=== PATIENT | female | born 1980 | race Caucasian/White ===

== ENCOUNTER 2016-09-24 09:24 | Day surgery (SDC) | payer MEDICAID ==
[~2016-09-24 09:24] MED LIST: Dexamethasone 4 MG/ML 5 ML MDV ONE; HYDROmorphone 1 MG/ML Syringe ONE; Lidocaine 1%/Sod Bicarbonate in NS 8.4% 1 ML Syringe IV PRN; Midazolam 1 MG/ML 2 ML SDV ONE; Ondansetron 4 MG/2 ML SDV ONE; Propofol 200 MG/20 ML SDV ONE; Rocuronium 50 MG/5 ML Vial ONE; Sodium Chloride 0.9% 10 ML ONE; Sodium Chloride 0.9% 10 ML Syringe FLUSH PRN; ceFAZolin 1 GM Vial ONE; fentaNYL 250 MCG/5 ML SDV ONE
[2016-09-24] MEDS: Lactated Ringers 1,000 ML IV SCH ×2 (09:50→14:58)
[2016-09-24] MEDS ORDERED: Sodium Chloride 0.9% 50 ML SDV ONE (09:58)
[2016-09-24] MEDS ORDERED: Bupivacaine 0.5% 30 ML SDV ONE (09:58)
[2016-09-24] MEDS ORDERED: Lidocaine 1% with EPINEPHrine 1:100,000 20 ML MDV ONE (09:58)
--- NOTE | 2016-09-24 10:06 | PCM.PREANE ---
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 Respiratory: Reports: no symptoms Cardiovascular: Reports: no symptoms GI: Reports: no symptoms Other: Reports: none - PHYSICAL ASSESSMENT HR: 81 O2 Sat by Pulse Oximetry: 100 RR: 16 BP: 111/77 Temp: 37.2 C Height: 1.57 m Weight: 52.617 kg NPO Status Date: 09/23/16 NPO Status Time: 21:00 ASA Class: 2 Mental Status: alert & oriented x3 Dentition: Reports: normal dentition Thyro-Mental Finger Breadths: 3 Mouth Opening Finger Breadths: 3 ROM/Head Extension: full Respiratory Status: lungs clear to auscultation bilaterally Cardiovascular Status: regular rate & rhythm, normal S1, S2, no murmur, blood pressure WNL - ALLERGIES Allergies/Adverse Reactions: Allergies Allergy/AdvReac Type Severity Reaction Status Date / Time No Known Allergies Allergy Verified 09/23/16 13:46 - BLOOD Blood Available: No Product(s) Available: None - ANESTHESIA PLAN Preop Beta Noam: No Anesthesia Type Planned: general anesthesia (scopoamine patch ordered ) - ACKNOWLEDGEMENTS Pt an appropriate candidate for the planned anesthesia: Yes Alternatives and risks of anesthesia discussed w pt/guardian: Yes Pt/Guardian understands and agree with anesthesia plan: Yes PreAnesthesia Questionnaire HEENT History: Reports: None Cardiovascular History: Reports: None Respiratory History: Reports: None Gastrointestinal History: Reports: None Genitourinary History: Reports: None COURT BAILIFF OR SHERIFF History: Reports: , Other (see below) Other OB/BYN History: Bicornuate uterus, dysmenorrhea, infertility, pelvic pain , chlamydia Musculoskeletal History: Reports: None Neurological History: Reports: None Psychiatric History: Reports: Anxiety Endocrine/Metabolic History: Reports: None Hematologic History: Reports: None Immunologic History: Reports: None Oncologic (Cancer) History: Reports: None Dermatologic History: Reports: Other (see below) Other Dermatologic History: History of dermatitis and rash - Infectious Disease History Infectious Disease History: Reports: Other (see below) Other Infectious Disease History: Herpes Zoster, Chlamydia - Past Surgical History HEENT Surgical History: Reports: Tonsillectomy Cardiovascular Surgical History: Reports: None Respiratory Surgical History: Reports: None GI Surgical History: Reports: None Female Surgical History: Reports: section Endocrine Surgical History: Reports: None Neurological Surgical History: Reports: None Musculoskeletal Surgical History: Reports: None Dermatological Surgical History: Reports: None - SUBSTANCE USE Smoking Status *Q: Never Smoker Tobacco Use Within Last Twelve Months: No Second Hand Smoke Exposure: No Recreational Drug Use History: No - HOME MEDS Home Medications: Home Meds Escitalopram [Lexapro] 20 mg PO DAILY 09/23/16 [History] - CURRENT (IN HOUSE) MEDS Current Meds: Current Medications Lactated Ringer's (Ringers, Lactated) 1,000 mls @ 125 mls/hr IV ASDIRECTED FARRUKH Stop: 09/24/16 23:00 Lidocaine/Sodium Bicarbonate (Buffered Lidocaine 1% In Ns 8.4%) 0.25 ml IV ONETIME PRN PRN Reason: Prior to IV Start Stop: 09/24/16 18:00 Sodium Chloride (Saline Flush) 10 ml FLUSH ASDIRECTED PRN PRN Reason: Keep Vein Open Stop: 09/24/16 18:00 Discontinued Medications Cefazolin Sodium (Ancef) Confirm Administered Dose 2 gm .ROUTE .STK-MED ONE Stop: 09/24/16 09:00 Dexamethasone (Dexamethasone) Confirm Administered Dose 20 mg .ROUTE .STK-MED ONE Stop: 09/24/16 09:00 Fentanyl (Sublimaze) Confirm Administered Dose 250 mcg .ROUTE .STK-MED ONE Stop: 09/24/16 09:01 Hydromorphone HCl (Dilaudid) Confirm Administered Dose 1 mg .ROUTE .STK-MED ONE Stop: 09/24/16 09:00 Sodium Chloride (Normal Saline) Confirm Administered Dose 10 mls @ as directed .ROUTE .STK-MED ONE Stop: 09/24/16 09:00 Midazolam HCl (Versed 1 Mg/Ml) Confirm Administered Dose 2 mg .ROUTE .STK-MED ONE Stop: 09/24/16 09:01 Ondansetron HCl (Zofran) Confirm Administered Dose 4 mg .ROUTE .STK-MED ONE Stop: 09/24/16 09:00 Propofol (Diprivan 20 Ml) Confirm Administered Dose 200 mg .ROUTE .STK-MED ONE Stop: 09/24/16 09:00 Rocuronium [place] (Zemuron) Confirm Administered Dose 50 mg .ROUTE .STK-MED ONE Stop: 09/24/16 09:00
[2016-09-24] MEDS ORDERED: Scopolamine 1.5 MG Transdermal Patch TRDERM ONE (10:10)
[2016-09-24] MEDS ORDERED: Ketorolac 30 MG/ML SDV ONE (12:24)
--- NOTE | 2016-09-24 13:02 | PCM.POSTAN ---
POST ANESTHESIA ASSESSMENT - MENTAL STATUS Mental Status: alert, oriented - VITAL SIGNS Pulse Rate: 82 SaO2: 99 Resp Rate: 16 Blood Pressure: 92/52 Temperature: 36.2 C - RESPIRATORY Respiratory Status: respiratory rate WNL, airway patent, O2 saturation stable - CARDIOVASCULAR CV Status: pulse rate WNL, blood pressure stable - GASTROINTESTINAL GI Status: no symptoms - PAIN Pain Score: 0 - POST OP HYDRATION Hydration Status: adequate & stable
[2016-09-24] MEDS ORDERED: Metoclopramide 10 MG/2 ML SDV IVPUSH PRN (13:03)
[2016-09-24] MEDS ORDERED: Ondansetron 4 MG/2 ML SDV IVPUSH PRN ×2 (13:03→16:29)
[2016-09-24] MEDS ORDERED: fentaNYL 100 MCG/2 ML SDV IVPUSH PRN (13:03)
--- NOTE | 2016-09-24 13:23 | PCM.OPNOTE ---
- General Post-Op/Procedure Note Date of Surgery/Procedure: 09/24/16 Operative Procedure(s): Laparoscope assisted vaginal hysterectomy, bilateral salpingectomy (neither ovary removed.) Pre Op Diagnosis: Hypermenorrhea, bicornuate uterus (more arcuate.), Dysmenorrhea Post-Op Diagnosis: Same Anesthesia Technique: General ET tube Primary Surgeon: Chad Francois Secondary Surgeon: Joshua Hinojosa Anesthesia Provider: Jessica Muniz Publicity Agent: Gurdeep Davis (HVAC MAINTENANCE TECHNICIAN) Fluid Replacement, Intraop: 1,600 Output, Urine Amount: 130 EBL in mLs: 50 Drain/Tube Comments:: None Complications: None Condition: Good Free Text/Narrative:: Patient was transported to operating room #2, and placed under general anesthesia with endotracheal placed in the low dorsal lithotomy position. Prepared and draped in sterile fashion. Timeout performed confirming name, date of , and procedures. Plan laparoscope assisted vaginal hysterectomy, bilateral salpingectomy (neither ovary was removed.). SCDs in place. Sponge, and prior surgery. Ancef 2 g given cleaned prior surgery. Examination under anesthesia revealed anterior uterus. No fixation of the adnexa, adnexa, was freely mobile. Uterus was normal size. Uterine manipulator was placed. Gonzales catheter placed to gravity drainage-Gonzales catheter removed. After surgery was completed. The umbilical incision was made after injecting 20 L of Marcaine 0.5 % inside. The incision and incision made and the pneumoperitoneum needle introduced without difficulty. Pneumoperitoneum was obtained. A 5 mm trocar was introduced and prompt visualization of pelvic organs was accomplished 2 mL of 0.5% Marcaine injected in the midline area of previous incisions. A small 5 mm transverse incision was made and the 5 mm trocar was introduced and manipulation of the ovaries and tubes revealed that left assisted vaginal hysterectomy should be able to be performed. Additional ports placed on the left and right side, with transillumination of the abdomen to avoid inferior epigastric vessel damage. The patient and I have discussed trying to leave. Both ovaries, and both ovaries were left, the right fallopian tube was grasped, elevated, and, crossclamped with Enseal activated, and incised, and proceeding towards the uterus. The tube was removed away from the mesosalpinx. Crossclamping the triple pedicle, and proceeding caudad. Crossclamping, activating the Enseal, and, incising, until the area of the uterine vasculature was, approximate, crossclamped, activated, x2 in size, times one for good hemostasis. A portion of bladder flap was created and pushed caudad. The right ovary appeared normal. Good blood supply at the end of procedure. When reevaluated. After closure of the peritoneal cavity. Same for the left ovary. The left ovary was grasped, and, elevated, and crossclamping the mesosalpinx, removing fallopian tube away from the ovary. The patient had had previous left ectopic . Left fallopian tube was somewhat adherent to the left ovary , but was able to be freed up, and removed saving. The left ovary from removal of triple pedicle was crossclamped, activating the Enseal, incising, and proceeding caudad until the uterine vascular was cross clamped twice activated, and incised, x1. Bladder flap was then created on the left side, meeting in the midline hemostasis was normal. Both ovaries appeared good. The pneumoperitoneum was reduced and the vaginal versus procedure was performed, grasping, the cervix. Of the uterus, and traction applied. Injecting, liters of 0.25% lidocaine with epinephrine for hemostasis. Circumscribing the cervix. A posterior colpotomy was then performed without difficulty. Crossclamping, the uterosacral and cardinal ligament bundles with ligature, activating, incising, proceeding cephalad until the uterus was removed en bloc with the fallopian tubes. Sponge, needle, pack, and splint sharp count correct, x2 in the peritoneal cavity was closed with running suture, pursestring type of 0 Monocryl. The anterior, posterior vaginal cuff, closed with a running, locking suture of 0 Monocryl. Hemostasis was normal. The pneumoperitoneum was reobtained and looking at the pedicles and the closure. No bleeding. Sponge, pack, and splint sharp count had been correct, the pneumoperitoneum was reduced before incisions closed with 4-0 Monocryl interrupted sutures and Dermabond applied. Patient transported post anesthesia care unit in satisfactory condition. No blood transfusions were required. One set of pictures taken a total of 7 images image 001, shows the anterior cul- de-sac. With adhesions from previous x3. Image 002, shows the left ovary with corpus luteum cyst, otherwise, normal. Left fallopian tube image, 003 shows the right fallopian tube with several small hydatid cyst of morganii image 004 overview of the posterior cul-de-sac. Both ovaries, and tubes are visible, image, [id number], and 007 showed the closure at the vaginal cuff. After removal small clot in any 00, 7, there's no active bleeding
[2016-09-24] MEDS ORDERED: HYDROmorphone 0.5 MG/0.5 ML Syringe IVPUSH PRN (14:05)
--- NOTE | 2016-09-24 14:31 | PCM.SN ---
- Free Text/Narrative Note: patient c/o pain needs extended recovery for pain management.
[2016-09-24] MEDS ORDERED: Acetaminophen/oxyCODONE 325-5 MG Tab PO ONE (15:45)
[2016-09-24] MEDS ORDERED: Ondansetron 4 MG Tab.DIS PO PRN (16:25)
--- NOTE | 2016-09-24 17:32 | PCM.SN ---
- Free Text/Narrative Note: Patient c/o 5/10 pain, extended recovery, lives in [place], patient not able to go home tonight due to pain and concerns whe will have problems at homewill stay for pain management.
[2016-09-24] MEDS: HYDROmorphone 0.5 MG/0.5 ML Syringe IVPUSH PRN ×3 (18:47→22:53)
[2016-09-24] MEDS: Acetaminophen/oxyCODONE 325-5 MG Tab PO PRN (20:29)
[2016-09-25] MEDS: HYDROmorphone 0.5 MG/0.5 ML Syringe IVPUSH PRN ×6 (00:23→08:48)
[2016-09-25] MEDS: Acetaminophen/oxyCODONE 325-5 MG Tab PO PRN ×2 (02:35→08:48)
--- NOTE | 2016-09-25 07:37 | PCM.DCSUM1 ---
Discharge Summary - Hospital Course Free Text/Narrative:: [facility] Post-Op/Procedure Note Patient Name: AYO RODARTE Date of : 84 Patient Status: Surgical Day Care Attending Provider: Chad Francois Date: 09/24/16 13:15 Initialization Date: 09/24/16 13:15 - General Post-Op/Procedure Note Date of Surgery/Procedure: 09/24/16 Operative Procedure(s): Laparoscope assisted vaginal hysterectomy, bilateral salpingectomy (neither ovary removed.) Pre Op Diagnosis: Hypermenorrhea, bicornuate uterus (more arcuate.), Dysmenorrhea Post-Op Diagnosis: Same Anesthesia Technique: General ET tube Primary Surgeon: Chad Francois Secondary Surgeon: Joshua Hinojosa Anesthesia Provider: Jessica Muniz Sterilizer Operator: Gurdeep Davis (CHAIN LINK FENCE INSTALLER) Fluid Replacement, Intraop: 1,600 Output, Urine Amount: 130 EBL in mLs: 50 Drain/Tube Comments:: None Complications: None Condition: Good Free Text/Narrative:: Patient was transported to operating room #2, and placed under general anesthesia with endotracheal placed in the low dorsal lithotomy position. Prepared and draped in sterile fashion. Timeout performed confirming name, date of , and procedures. Plan laparoscope assisted vaginal hysterectomy, bilateral salpingectomy (neither ovary was removed.). SCDs in place. Sponge, and prior surgery. Ancef 2 g given cleaned prior surgery. Examination under anesthesia revealed anterior uterus. No fixation of the adnexa, adnexa, was freely mobile. Uterus was normal size. Uterine manipulator was placed. Gonzales catheter placed to gravity drainage-Gonzales catheter removed. After surgery was completed. The umbilical incision was made after injecting 20 L of Marcaine 0.5 % inside. The incision and incision made and the pneumoperitoneum needle introduced without difficulty. Pneumoperitoneum was obtained. A 5 mm trocar was introduced and prompt visualization of pelvic organs was accomplished 2 mL of 0.5% Marcaine injected in the midline area of previous incisions. A small 5 mm transverse incision was made and the 5 mm trocar was introduced and manipulation of the ovaries and tubes revealed that left assisted vaginal hysterectomy should be able to be performed. Additional ports placed on the left and right side, with transillumination of the abdomen to avoid inferior epigastric vessel damage. The patient and I have discussed trying to leave. Both ovaries, and both ovaries were left, the right fallopian tube was grasped, elevated, and, crossclamped with Enseal activated, and incised, and proceeding towards the uterus. The tube was removed away from the mesosalpinx. Crossclamping the triple pedicle, and proceeding caudad. Crossclamping, activating the Enseal, and, incising, until the area of the uterine vasculature was, approximate, crossclamped, activated, x2 in size, times one for good hemostasis. A portion of bladder flap was created and pushed caudad. The right ovary appeared normal. Good blood supply at the end of procedure. When reevaluated. After closure of the peritoneal cavity. Same for the left ovary. The left ovary was grasped, and, elevated, and crossclamping the mesosalpinx, removing fallopian tube away from the ovary. The patient had had previous left ectopic . Left fallopian tube was somewhat adherent to the left ovary , but was able to be freed up, and removed saving. The left ovary from removal of triple pedicle was crossclamped, activating the Enseal, incising, and proceeding caudad until the uterine vascular was cross clamped twice activated, and incised, x1. Bladder flap was then created on the left side, meeting in the midline hemostasis was normal. Both ovaries appeared good. The pneumoperitoneum was reduced and the vaginal versus procedure was performed, grasping, the cervix. Of the uterus, and traction applied. Injecting, liters of 0.25% lidocaine with epinephrine for hemostasis. Circumscribing the cervix. A posterior colpotomy was then performed without difficulty. Crossclamping, the uterosacral and cardinal ligament bundles with ligature, activating, incising, proceeding cephalad until the uterus was removed en bloc with the fallopian tubes. Sponge, needle, pack, and splint sharp count correct, x2 in the peritoneal cavity was closed with running suture, pursestring type of 0 Monocryl. The anterior, posterior vaginal cuff, closed with a running, locking suture of 0 Monocryl. Hemostasis was normal. The pneumoperitoneum was reobtained and looking at the pedicles and the closure. No bleeding. Sponge, pack, and splint sharp count had been correct, the pneumoperitoneum was reduced before incisions closed with 4-0 Monocryl interrupted sutures and Dermabond applied. Patient transported post anesthesia care unit in satisfactory condition. No blood transfusions were required. One set of pictures taken a total of 7 images image 001, shows the anterior cul- de-sac. With adhesions from previous x3. Image 002, shows the left ovary with corpus luteum cyst, otherwise, normal. Left fallopian tube image, 003 shows the right fallopian tube with several small hydatid cyst of morganii image 004 overview of the posterior cul-de-sac. Both ovaries, and tubes are visible, image, [id number], and 007 showed the closure at the vaginal cuff. After removal small clot in any 00, 7, there's no active bleeding Required frequent IV pain meds throughout the night. Dismiss now, has followup appointment HPI Initial Comments: [facility] Post-Op/Procedure Note Patient Name: AYO RODARTE Date of : 84 Patient Status: Surgical Day Care Attending Provider: Chad Francois Date: 09/24/16 13:15 Initialization Date: 09/24/16 13:15 - General Post-Op/Procedure Note Date of Surgery/Procedure: 09/24/16 Operative Procedure(s): Laparoscope assisted vaginal hysterectomy, bilateral salpingectomy (neither ovary removed.) Pre Op Diagnosis: Hypermenorrhea, bicornuate uterus (more arcuate.), Dysmenorrhea Post-Op Diagnosis: Same Anesthesia Technique: General ET tube Primary Surgeon: Chad Francois Secondary Surgeon: Joshua Hinojosa Anesthesia Provider: Jessica Muniz Sterilizer Operator: Gurdeep Davis (CHAIN LINK FENCE INSTALLER) Fluid Replacement, Intraop: 1,600 Output, Urine Amount: 130 EBL in mLs: 50 Drain/Tube Comments:: None Complications: None Condition: Good Free Text/Narrative:: Patient was transported to operating room #2, and placed under general anesthesia with endotracheal placed in the low dorsal lithotomy position. Prepared and draped in sterile fashion. Timeout performed confirming name, date of , and procedures. Plan laparoscope assisted vaginal hysterectomy, bilateral salpingectomy (neither ovary was removed.). SCDs in place. Sponge, and prior surgery. Ancef 2 g given cleaned prior surgery. Examination under anesthesia revealed anterior uterus. No fixation of the adnexa, adnexa, was freely mobile. Uterus was normal size. Uterine manipulator was placed. Gonzales catheter placed to gravity drainage-Gonzales catheter removed. After surgery was completed. The umbilical incision was made after injecting 20 L of Marcaine 0.5 % inside. The incision and incision made and the pneumoperitoneum needle introduced without difficulty. Pneumoperitoneum was obtained. A 5 mm trocar was introduced and prompt visualization of pelvic organs was accomplished 2 mL of 0.5% Marcaine injected in the midline area of previous incisions. A small 5 mm transverse incision was made and the 5 mm trocar was introduced and manipulation of the ovaries and tubes revealed that left assisted vaginal hysterectomy should be able to be performed. Additional ports placed on the left and right side, with transillumination of the abdomen to avoid inferior epigastric vessel damage. The patient and I have discussed trying to leave. Both ovaries, and both ovaries were left, the right fallopian tube was grasped, elevated, and, crossclamped with Enseal activated, and incised, and proceeding towards the uterus. The tube was removed away from the mesosalpinx. Crossclamping the triple pedicle, and proceeding caudad. Crossclamping, activating the Enseal, and, incising, until the area of the uterine vasculature was, approximate, crossclamped, activated, x2 in size, times one for good hemostasis. A portion of bladder flap was created and pushed caudad. The right ovary appeared normal. Good blood supply at the end of procedure. When reevaluated. After closure of the peritoneal cavity. Same for the left ovary. The left ovary was grasped, and, elevated, and crossclamping the mesosalpinx, removing fallopian tube away from the ovary. The patient had had previous left ectopic . Left fallopian tube was somewhat adherent to the left ovary , but was able to be freed up, and removed saving. The left ovary from removal of triple pedicle was crossclamped, activating the Enseal, incising, and proceeding caudad until the uterine vascular was cross clamped twice activated, and incised, x1. Bladder flap was then created on the left side, meeting in the midline hemostasis was normal. Both ovaries appeared good. The pneumoperitoneum was reduced and the vaginal versus procedure was performed, grasping, the cervix. Of the uterus, and traction applied. Injecting, liters of 0.25% lidocaine with epinephrine for hemostasis. Circumscribing the cervix. A posterior colpotomy was then performed without difficulty. Crossclamping, the uterosacral and cardinal ligament bundles with ligature, activating, incising, proceeding cephalad until the uterus was removed en bloc with the fallopian tubes. Sponge, needle, pack, and splint sharp count correct, x2 in the peritoneal cavity was closed with running suture, pursestring type of 0 Monocryl. The anterior, posterior vaginal cuff, closed with a running, locking suture of 0 Monocryl. Hemostasis was normal. The pneumoperitoneum was reobtained and looking at the pedicles and the closure. No bleeding. Sponge, pack, and splint sharp count had been correct, the pneumoperitoneum was reduced before incisions closed with 4-0 Monocryl interrupted sutures and Dermabond applied. Patient transported post anesthesia care unit in satisfactory condition. No blood transfusions were required. One set of pictures taken a total of 7 images image 001, shows the anterior cul- de-sac. With adhesions from previous x3. Image 002, shows the left ovary with corpus luteum cyst, otherwise, normal. Left fallopian tube image, 003 shows the right fallopian tube with several small hydatid cyst of morganii image 004 overview of the posterior cul-de-sac. Both ovaries, and tubes are visible, image, [id number], and 007 showed the closure at the vaginal cuff. After removal small clot in any 00, 7, there's no active bleeding Required frequent IV pain meds throughout the night. Dismiss now, has followup appointment Brief History: [facility] . Post-Op/Procedure Note. [facility]: [id number]. Date of : 84Patient Status: Surgical Day Care. Attending Provider: Chad Francoisount Number: [id number]. Date: 09/24/16 13:15Initialization Date: 13:15. - General Post-Op/Procedure Note. Date of Surgery/Procedure: . Operative Procedure(s): Laparoscope assisted vaginal hysterectomy, bilateral salpingectomy (neither ovary removed.). Pre Op Diagnosis: Hypermenorrhea, bicornuate uterus (more arcuate.), Dysmenorrhea. Post-Op Diagnosis: Same. Anesthesia Technique: General ET tube. Primary Surgeon: Chad Francois. Secondary Surgeon: Joshua Hinojosa. Anesthesia Provider: Jessica Muniz. Sterilizer Operator: Gurdeep Davis (CHAIN LINK FENCE INSTALLER). Fluid Replacement, Intraop: 1,600. Output, Urine Amount: 130. EBL in mLs: 50. Drain/Tube Comments:: None. Complications: None. Condition: Good. Free Text/Narrative:: Patient was transported to operating room #2, and placed under general anesthesia with endotracheal placed in the low dorsal lithotomy position. Prepared and draped in sterile fashion. Timeout performed confirming name, date of , and procedures. Plan laparoscope assisted vaginal hysterectomy, bilateral salpingectomy (neither ovary was removed.). SCDs in place. Sponge, and prior surgery. Ancef 2 g given cleaned prior surgery. Examination under anesthesia revealed anterior uterus. No fixation of the adnexa, adnexa, was freely mobile. Uterus was normal size. Uterine manipulator was placed. Gonzales catheter placed to gravity drainage-Gonzales catheter removed. After surgery was completed. The umbilical incision was made after injecting 20 L of Marcaine 0.5 % inside. The incision and incision made and the pneumoperitoneum needle introduced without difficulty. Pneumoperitoneum was obtained. A 5 mm trocar was introduced and prompt visualization of pelvic organs was accomplished 2 mL of 0.5% Marcaine injected in the midline area of previous incisions. A small 5 mm transverse incision was made and the 5 mm trocar was introduced and manipulation of the ovaries and tubes revealed that left assisted vaginal hysterectomy should be able to be performed. Additional ports placed on the left and right side, with transillumination of the abdomen to avoid inferior epigastric vessel damage. The patient and I have discussed trying to leave. Both ovaries, and both ovaries were left, the right fallopian tube was grasped, elevated, and, crossclamped with Enseal activated, and incised, and proceeding towards the uterus. The tube was removed away from the mesosalpinx. Crossclamping the triple pedicle, and proceeding caudad. Crossclamping, activating the Enseal, and, incising, until the area of the uterine vasculature was, approximate, crossclamped, activated, x2 in size, times one for good hemostasis. A portion of bladder flap was created and pushed caudad. The right ovary appeared normal. Good blood supply at the end of procedure. When reevaluated. After closure of the peritoneal cavity. Same for the left ovary. The left ovary was grasped, and, elevated, and crossclamping the mesosalpinx, removing fallopian tube away from the ovary. The patient had had previous left ectopic . Left fallopian tube was somewhat adherent to the left ovary , but was able to be freed up, and removed saving. The left ovary from removal of triple pedicle was crossclamped, activating the Enseal, incising, and proceeding caudad until the uterine vascular was cross clamped twice activated, and incised, x1. Bladder flap was then created on the left side, meeting in the midline hemostasis was normal. Both ovaries appeared good. The pneumoperitoneum was reduced and the vaginal versus procedure was performed, grasping, the cervix. Of the uterus, and traction applied. Injecting, liters of 0.25% lidocaine with epinephrine for hemostasis. Circumscribing the cervix. A posterior colpotomy was then performed without difficulty. Crossclamping, the uterosacral and cardinal ligament bundles with ligature, activating, incising, proceeding cephalad until the uterus was removed en bloc with the fallopian tubes. Sponge, needle, pack, and splint sharp count correct, x2 in the peritoneal cavity was closed with running suture, pursestring type of 0 Monocryl. The anterior, posterior vaginal cuff, closed with a running, locking suture of 0 Monocryl. Hemostasis was normal. The pneumoperitoneum was reobtained and looking at the pedicles and the closure. No bleeding. Sponge, pack, and splint sharp count had been correct, the pneumoperitoneum was reduced before incisions closed with 4-0 Monocryl interrupted sutures and Dermabond applied. Patient transported post anesthesia care unit in satisfactory condition. No blood transfusions were required. One set of pictures taken a total of 7 images image 001, shows the anterior cul-de-sac. With adhesions from previous x3. Image 002, shows the left ovary with corpus luteum cyst, otherwise, normal. Left fallopian tube image, 003 shows the right fallopian tube with several small hydatid cyst of morganii image 004 overview of the posterior cul-de-sac. Both ovaries, and tubes are visible, image, [id number] , and 007 showed the closure at the vaginal cuff. After removal small clot in any 00, 7, there's no active bleeding. Required frequent IV pain meds throughout the night. Dismiss now, has followup appointment - Discharge Data Discharge Date: 09/25/16 Discharge Disposition: Home, Self-Care 01 Condition: Good - Discharge Diagnosis/Problem(s) (1) Excessive and frequent menstruation with regular cycle SNOMED Code(s): 271583883 ICD Code: N92.0 - EXCESSIVE AND FREQUENT MENSTRUATION WITH REGULAR CYCLE Status: Acute Current Visit: Yes (2) Bicornuate uterus, partial SNOMED Code(s): 82789150 ICD Code: Q51.3 - BICORNATE UTERUS Status: Acute Current Visit: Yes (3) Dysmenorrhea SNOMED Code(s): 780253870 ICD Code: N94.6 - DYSMENORRHEA, UNSPECIFIED Status: Acute Current Visit: Yes - Patient Summary/Data Operative Procedure(s) Performed: Laparoscope assisted vaginal hysterectomy, bilateral salpingectomy (neither ovary removed.) Complications: none Consults: none Hospital Course: uneventful - Patient Instructions Diet: Heart Healthy Diet Driving: Do Not Drive (x4 weeks) Showering/Bathing: May Shower, No Tub Bathing/Swimming (x6 weeks) Wound/Incision Care: Keep Operative Site/Wound Site Clean and Dry Notify Provider of: Fever, Increased Pain, Swelling and Redness, Drainage, Nausea and/or Vomiting - Discharge Plan Prescriptions/Med Rec: Acetaminophen/oxyCODONE [Percocet 325-5 MG] 1 tab PO Q6H #30 tablet Ondansetron [Zofran ODT] 8 mg PO Q6H #20 tab.dis Home Medications: Home Meds Escitalopram [Lexapro] 20 mg PO DAILY 09/23/16 [History] Acetaminophen/oxyCODONE [Percocet 325-5 MG] 1 tab PO Q6H #30 tablet 09/24/16 [Rx ] Ondansetron [Zofran ODT] 8 mg PO Q6H #20 tab.dis 09/24/16 [Rx] Referrals: Chad Francois MD [Physician] - (has appointment) - Discharge Summary/Plan Comment DC Time >30 min.: No - Patient Data Vitals - Most Recent: Last Vital Signs Temp 99.6 F 09/24/16 22:00 Pulse 75 09/24/16 22:00 Resp 16 09/24/16 22:00 BP 100/50 L 09/24/16 22:00 Pulse Ox 96 09/24/16 22:00 Weight - Most Recent: 121 lb 4.8 oz I&O - Last 24 hours: Intake & Output 09/24/16 09/25/16 09/25/16 22:59 06:59 14:59 Intake Total 1550 1400 Output Total 400 2050 Balance 1150 -650 Lab Results - Last 24 hrs: Laboratory Results - last 24 hr 09/24/16 09/24/16 09/24/16 Range/Units 09:55 09:55 09:55 WBC 4.36 (3.98-10.04) K/mm3 RBC 5.05 (3.98-5.22) M/mm3 Hgb 14.7 (11.2-15.7) gm/L Hct 44.3 (34.1-44.9) % MCV 87.7 (79.4-94.8) fl MCH 29.1 (25.6-32.2) pg MCHC 33.2 (32.2-35.5) g/dl RDW Std Deviation 41.2 (36.4-46.3) fL Plt Count 301 (182-369) K/mm3 MPV 11.2 (9.4-12.3) fl Neut % (Auto) 51.4 (34.0-71.1) % Lymph % (Auto) 38.5 (19.3-51.7) % Bollinger % (Auto) 6.9 (4.7-12.5) % Eos % (Auto) 2.3 (0.7-5.8) Baso % (Auto) 0.9 (0.1-1.2) % Neut # 2.24 (1.56-6.13) K/mm3 Lymph # 1.68 (1.18-3.74) K/mm3 Bollinger # 0.30 (0.24-0.36) K/mm3 Eos # 0.10 (0.04-0.36) K/mm3 Baso # 0.04 (0.01-0.08) K/mm3 HCG, Quant < 1.0 mIU/mL Blood Type A POSITIVE Gel Antibody Screen Negative Med Orders - Current: Current Medications Hydromorphone HCl (Dilaudid) 0.5 mg IVPUSH Q1H PRN PRN Reason: Pain (severe 7-10) Last Admin: 09/25/16 07:31 Dose: 0.5 mg Ondansetron HCl (Zofran Odt) 4 mg PO Q6H PRN PRN Reason: Nausea/Vomiting Ondansetron HCl (Zofran) 4 mg IVPUSH Q8H PRN PRN Reason: Nausea/Vomiting Oxycodone/Acetaminophen (Percocet 325-5 Mg) 1 tab PO Q6H PRN PRN Reason: Pain (moderate 4-6) Last Admin: 09/25/16 02:35 Dose: 1 tab Discontinued Medications Bupivacaine HCl (Marcaine 0.5%) Confirm Administered Dose 30 ml .ROUTE .STK-MED ONE Stop: 09/24/16 09:59 Last Admin: 09/24/16 11:59 Dose: 14 ml Cefazolin Sodium (Ancef) Confirm Administered Dose 2 gm .ROUTE .STK-MED ONE Stop: 09/24/16 09:00 Dexamethasone (Dexamethasone) Confirm Administered Dose 20 mg .ROUTE .STK-MED ONE Stop: 09/24/16 09:00 Fentanyl (Sublimaze) Confirm Administered Dose 250 mcg .ROUTE .STK-MED ONE Stop: 09/24/16 09:01 Fentanyl (Sublimaze) 50 mcg IVPUSH Q5M PRN PRN Reason: pain Stop: 09/24/16 18:00 Last Admin: 09/24/16 13:37 Dose: 50 mcg Hydromorphone HCl (Dilaudid) Confirm Administered Dose 1 mg .ROUTE .STK-MED ONE Stop: 09/24/16 09:00 Hydromorphone HCl (Dilaudid) 0.5 mg IVPUSH Q15M PRN PRN Reason: Pain (severe 7-10) Stop: 09/24/16 14:21 Lactated Ringer's (Ringers, Lactated) 1,000 mls @ 125 mls/hr IV ASDIRECTED [facility] Last Admin: 09/24/16 14:58 Dose: 125 mls/hr Sodium Chloride (Normal Saline) Confirm Administered Dose 10 mls @ as directed .ROUTE .STK-MED ONE Stop: 09/24/16 09:00 Ketorolac Tromethamine (Toradol) Confirm Administered Dose 30 mg .ROUTE .STK- MED ONE Stop: 09/24/16 12:25 Lidocaine/Epinephrine (Xylocaine 1% With Epinephrine 1:100,000) Confirm Administered Dose 20 ml .ROUTE .STK-MED ONE Stop: 09/24/16 09:59 Last Admin: 09/24/16 12:00 Dose: 5 ml Lidocaine/Sodium Bicarbonate (Buffered Lidocaine 1% In Ns 8.4%) 0.25 ml IV ONETIME PRN PRN Reason: Prior to IV Start Stop: 09/24/16 18:00 Last Admin: 09/24/16 09:49 Dose: 0.25 ml Metoclopramide HCl (Reglan) 10 mg IVPUSH ONETIME PRN PRN Reason: Nausea/Vomiting Stop: 09/24/16 18:00 Midazolam HCl (Versed 1 Mg/Ml) Confirm Administered Dose 2 mg .ROUTE .ST-MED ONE Stop: 09/24/16 09:01 Ondansetron HCl (Zofran) Confirm Administered Dose 4 mg .ROUTE .STK-MED ONE Stop: 09/24/16 09:00 Ondansetron HCl (Zofran) 4 mg IVPUSH ONETIME PRN PRN Reason: Nausea/Vomiting Stop: 09/24/16 18:00 Oxycodone/Acetaminophen (Percocet 325-5 Mg) 1 tab PO ONETIME ONE Stop: 09/24/16 15:46 Last Admin: 09/24/16 14:48 Dose: 1 tab Propofol (Diprivan 20 Ml) Confirm Administered Dose 200 mg .ROUTE .STK-MED ONE Stop: 09/24/16 09:00 Rocuronium Olive (Zemuron) Confirm Administered Dose 50 mg .ROUTE .STK-MED ONE Stop: 09/24/16 09:00 Scopolamine (Transderm-Scop) 1.5 mg TRDERM ONETIME ONE Stop: 09/24/16 10:11 Last Admin: 09/24/16 10:20 Dose: 1.5 mg Sodium Chloride (Saline Flush) 10 ml FLUSH ASDIRECTED PRN PRN Reason: Keep Vein Open Stop: 09/24/16 18:00 Sodium Chloride (Normal Saline) Confirm Administered Dose 50 ml .ROUTE .[facility]-MED ONE Stop: 09/24/16 09:59 Last Admin: 09/24/16 12:01 Dose: 15 ml *Q Meaningful Use (DIS) - VTE *Q VTE Criteria *Q: - Stroke *Q Stroke Criteria *Q: - AMI *Q AMI Criteria *Q:
[2016-09-25 08:56] VITALS: BP 91/51
== END 2016-09-25 09:15 | disposition home or self-care (01) ==
LOC: JD.SDS 09:24
PROVIDERS: ATTEND Obstetrics & Gynecology
PROC: 0UT9FZZ Resection of Uterus, Via Natural or Artificial Opening With Percutaneous Endoscopic Assistance (ICD-10-PCS; principal; 2016-09-24)
PROC: 0UTC7ZZ Resection of Cervix, Via Natural or Artificial Opening (ICD-10-PCS; 2016-09-24)
PROC: 0UT7FZZ Resection of Bilateral Fallopian Tubes, Via Natural or Artificial Opening With Percutaneous Endoscopic Assistance (ICD-10-PCS; 2016-09-24)
DX: N80.0 Endometriosis of uterus (principal); N83.8 Other noninflammatory disorders of ovary, fallopian tube and broad ligament; N92.0 Excessive and frequent menstruation with regular cycle; Q51.3 Bicornate uterus; N94.6 Dysmenorrhea, unspecified; F41.9 Anxiety disorder, unspecified
CPT/HCPCS: 00944; 36415; 84702; 85025; 86850; 86900; 86901; 88307; 88307-26; A9270-GY; J0690; J1100; J1170; J1885; J2250; J2405; J2704; J3010; J7120